=== PATIENT | female | born 1935 | race Caucasian/White ===

== ENCOUNTER 2021-05-22 13:25 | Inpatient (IN) | payer MEDICARE ==
[~2021-05-22] VITALS: Ht 152.4 cm; Wt 68.0 kg
[2021-05-22 14:47] LABS: HEMOGLOBIN 11.9 gm/dl (12.3-15.3); RED BLOOD COUNT 4.29 M/UL (4.00-5.10); WHITE BLOOD COUNT 11.6 K/UL (4.5-11.0)
[2021-05-22 19:37] LABS: MONONUCLEAR CELLS 4 %; POLYMORPHONUCLEAR 96 %; RBC (AUTOMATED) 2600 10^6; WBC (AUTOMATED) 10672 10^3
[2021-05-23 06:24] LABS: HEMOGLOBIN 11.5 gm/dl (12.3-15.3); RED BLOOD COUNT 4.04 M/UL (4.00-5.10)
[2021-05-23 06:26] LABS: WHITE BLOOD COUNT 7.5 K/UL (4.5-11.0)
[2021-05-23] MEDS ORDERED: OMEPRAZOLE20 MG PO (12:57)
[2021-05-23] MEDS ORDERED: ENULOSE10 GM/15 M PO (12:57)
[2021-05-23] MEDS ORDERED: NORVASC10 MG PO (12:57)
[2021-05-23] MEDS ORDERED: SYNTHROID88 MCG PO (12:57)
[2021-05-23] MEDS ORDERED: TENORMIN 25 MG25 MG PO (12:58)
[2021-05-24 04:09] LABS: HEMOGLOBIN 10.9 gm/dl (12.3-15.3); RED BLOOD COUNT 3.85 M/UL (4.00-5.10); WHITE BLOOD COUNT 6.3 K/UL (4.5-11.0)
[2021-05-25 04:22] LABS: HEMOGLOBIN 10.8 gm/dl (12.3-15.3); RED BLOOD COUNT 3.86 M/UL (4.00-5.10); WHITE BLOOD COUNT 5.4 K/UL (4.5-11.0)
[2021-05-26 06:35] LABS: HEMOGLOBIN 10.2 gm/dl (12.3-15.3); RED BLOOD COUNT 3.57 M/UL (4.00-5.10); WHITE BLOOD COUNT 4.2 K/UL (4.5-11.0)
[2021-05-26 07:00] LABS: BUN/CREATININE RATIO 24 (0-10)
[2021-05-27 06:50] LABS: HEMOGLOBIN 10.6 gm/dl (12.3-15.3); RED BLOOD COUNT 3.75 M/UL (4.00-5.10); WHITE BLOOD COUNT 4.9 K/UL (4.5-11.0)
[2021-05-27 07:12] LABS: BUN/CREATININE RATIO 19 (0-10)
[2021-05-27] MEDS ORDERED: TYLOPHEN500 MG PO (10:26)
[2021-05-27] MEDS ORDERED: rocephin (10:26)
[2021-05-27] MEDS ORDERED: FERROUS SULFAT325 M2 PO (10:26)
[2021-05-27] MEDS ORDERED: vancomycin (10:26)
[2021-05-27] MEDS ORDERED: VANCOMYCIN1 GM/2002 IV (12:53)
[2021-05-27] MEDS ORDERED: ROCEPHIN IM/I2000 MG IV (12:54)
[2021-05-28 07:49] LABS: HEMOGLOBIN 9.8 gm/dl (12.3-15.3); RED BLOOD COUNT 3.62 M/UL (4.00-5.10); WHITE BLOOD COUNT 4.9 K/UL (4.5-11.0)
[2021-05-28 08:24] LABS: BUN/CREATININE RATIO 20 (0-10)
--- NOTE | 2021-05-28 10:48 | NUR ---
PATIENT ROOM AIR O2 SAT 82%
== END 2021-05-28 17:05 | disposition home health service (06) | DRG 485 ==
LOC: ER1 13:25 → CDU 21:48 → M/S 21:48
PROVIDERS: Internal Medicine; Orthopaedic Surgery; Physician Assistant; ADMIT Internal Medicine
PROC: 0S9D0ZZ Drainage of Left Knee Joint, Open Approach (ICD-10-PCS; principal; 2021-05-23 09:15)
PROC: 02HV33Z Insertion of Infusion Device into Superior Vena Cava, Percutaneous Approach (ICD-10-PCS; 2021-05-27)
DX: M00.862 Arthritis due to other bacteria, left knee (principal); U07.1 COVID-19; J96.01 Acute respiratory failure with hypoxia; N17.9 Acute kidney failure, unspecified; D50.9 Iron deficiency anemia, unspecified; I10 Essential (primary) hypertension; F41.9 Anxiety disorder, unspecified; G89.29 Other chronic pain; F19.10 Other psychoactive substance abuse, uncomplicated; M54.9 Dorsalgia, unspecified; E87.6 Hypokalemia; Z79.890 Hormone replacement therapy; Z88.8 Allergy status to other drugs, medicaments and biological substances
CPT/HCPCS: 20610; 36415; 70450; 71045; 71046; 73564; 80048; 80053; 80202; 83540; 83550; 83735; 85025; 85027; 85610; 85652; 85730; 86140; 86850; 86900; 86901; 87040; 87070; 89051; 93005; 93971; 94760; 96374; 96375; 97110-GP-CQ; 97116-GP-CQ; 97162; 97166; 99285; C1751; G0378; J0690; J0692; J1100; J1650; J2001; J2370; J2405; J2704; J3010; J3370; J7030; J7050; J7070; J7120; U0002

== ENCOUNTER → 2021-06-26 | Outpatient (CLI) | payer MEDICARE ==
[~2021-06-26] MED LIST: ENULOSE10 GM/15 M PO; FERROUS SULFAT325 M2 PO; NORVASC10 MG PO; OMEPRAZOLE20 MG PO; ROCEPHIN IM/I2000 MG IV; SYNTHROID88 MCG PO; TENORMIN 25 MG25 MG PO; TYLOPHEN500 MG PO; VANCOMYCIN1 GM/2002 IV; rocephin; vancomycin
== END ==
LOC: OPSV 12:00
DX: M00.9 Pyogenic arthritis, unspecified (principal); D50.9 Iron deficiency anemia, unspecified
CPT/HCPCS: G0463